=== PATIENT | male | born 1945 | race Caucasian/White ===

== ENCOUNTER 2021-11-13 19:57 | Emergency (ER) | payer MEDICARE ==
[~2021-11-13] VITALS: Ht 175.3 cm; Wt 83.0 kg
[2021-11-13] MEDS ORDERED: XARELTO20 MG PO (20:11)
[2021-11-13] MEDS ORDERED: AZITHROMYCIN500 MG PO (21:29)
== END 2021-11-13 21:52 | disposition left against medical advice (07) ==
LOC: ED 19:57
DX: J44.1 Chronic obstructive pulmonary disease with (acute) exacerbation (principal); Z20.822 Contact with and (suspected) exposure to COVID-19; Z79.899 Other long term (current) drug therapy
CPT/HCPCS: 36415; 71045; 80053; 85025; 87502; 94640; 96374; 99285-25; C9803; J2930; U0003

== ENCOUNTER 2021-11-15 13:11 | Inpatient (IN) | payer OTHER ==
[~2021-11-15] VITALS: Ht 180.3 cm; Wt 83.3 kg
[~2021-11-15 13:11] MED LIST: AZITHROMYCIN500 MG PO; XARELTO20 MG PO
--- OUTSIDE RECORDS SUMMARY | 2021-11-15 13:19 | XMS ---
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 Talha has no Care Guidelines for this patient. Thor VISIT COUNT (12 MO.) 2 [facility] [place] [facility]. TOTAL 2 NOTE: Visits indicate total known visits. ED/C VISIT TRACKING (12 MO.) 11/15/2021 13:[address] [facility] [place] TYPE: Emergency COMPLAINT: - SHOB 11/13/2021 19:57 [facility] [place] TYPE: Emergency COMPLAINT: - SHORTNESS OF BREATH INPATIENT VISIT TRACKING (12 MO.) No inpatient visits to display in this time frame [id number]
[2021-11-15] MEDS ORDERED: METHYLPREDNISOLO4 M1 PO (13:21)
--- NOTE | 2021-11-15 14:05 | EKG ---
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
--- NOTE | 2021-11-15 16:48 | NUR ---
Report received from Delmy COLEMAN, awaiting pt arrival to [place] room 107
--- NOTE | 2021-11-15 17:00 | NUR ---
[facility] and is able to transfer self to bed, becomes SOB with exertion, remains on 5L NC and SPO2 93%. Hx and admission complete, assessment complete. Wheezes throughout lungs noted, coarse in RUL. Pt states current smoker but very interested in quitting. Pt needs pharmacy consult as unsure of medications and why he takes them. Pt has EMS start IV in R hand. SBA, skin intact, A+O. Education provided regarding current admission and illness, pt compliant with cares and has no questions at this time.
--- NOTE | 2021-11-15 17:39 | NUR ---
Scheduled solumedrol administered, Nicotine patch applied to L shoulder. Pt provided with dinner.
--- NOTE | 2021-11-15 18:43 | NUR ---
Vitals checked- BP 158/77, improved from admission BP. Pt provided with PB&J per request to change dinner options. Pt titrated to 4L NC, SPO2 93-95%, eating dinner, remains on 4L. Pt denies needs at this time. Call light in reach, all belongings in reach.
--- NOTE | 2021-11-15 19:15 | NUR ---
REPORT RECEIVED FROM VIRGINIA RON. SBA TO SIDE OF BED FOR VOID. SPO2 TITRATED TO 5L OXYGEN BY NC WITH ACTIVITY. pt SOB, LABORED BREATHING. REQUESTING NEB AVAILABLE.
--- NOTE | 2021-11-15 22:11 | NUR ---
RT IN pt ROOM FOR BREATHING TREATMENT, COMPLETE. ASSESSMENT COMPLETE. SPO2 WNL AT REST WITH 4L OXYGEN BY NC. pt UP TO SIDE OF BED FOR VOID. SOB WITH STANDING. pt TAKES SEVERAL MINUTES TO RECOVER WITH 8L OXYGEN, TITRATED BACK TO 4L OXYGEN WHEN IN BED. CALL LIGHT IN REACH. NO ADDITIONAL REQUESTS.
--- NOTE | 2021-11-16 00:36 | NUR ---
pt RESTING IN BED WITH EYES CLOSED. BREATHING EQUAL AND UNLABORED. RR 18. 4L OXYGEN BY NC IN PLACE.
--- NOTE | 2021-11-16 02:27 | NUR ---
pt AWAKE RESTING IN BED. STATES "I HAVEN'T SLEPT THESE LIGHTS KEEP ME UP IN THE HALLWAY". SPO2 87% WITH 4L OXYGEN BY NC IN PLACE. TITRATED TO 5L OXYGEN BY NC, SPO2 INCREASES TO 90%. LABORED BREATHING NOTED. pt REQUESTING BREATHING TREATMENT. RT NOTIFIED. WHEEZES AUSCULTATED IN LUNG BASES, DIMINISHED BREATH SOUNDS. ICE WATER REFRESHED. TOWEL PROVIDED TO COVER EYES FOR SLEEP. CALL LIGHT IN REACH.
--- NOTE | 2021-11-16 05:27 | NUR ---
CALL LIGHT ANSWERED. SBA TO SIDE OF BED FOR VOID IN URINAL. BACK IN BED. STERILE FLUSH PROVIDED FOR NOSTRILS. OXYMASK IN PLACE PER REQUEST BY pt. SPO2 93% WITH 4L OXYGEN BY OXYMASK IN PLACE. IV MEDICATION ADMINISTERED. IV SL WNL. CALL LIGHT IN REACH. BLINDS SHUT PER REQUEST.
--- NOTE | 2021-11-16 07:13 | NUR ---
Report received from Raeann COLEMAN. Pt resting in bed with eyes closed, even and unlabored respirations on 4L NC O2. No needs identified at this time. Call light in reach, will continue plan of care.
--- NOTE | 2021-11-16 09:03 | NUR ---
Scheduled medications administered, nicotine patch applied to R shoulder. Pt takes PO ABX. CM in room assessing patient.
--- NOTE | 2021-11-16 09:30 | NUR ---
This RN and ADHESIVE BANDAGE MACHINE OPERATOR in room, VSS, I/Os completed. Pt requires 6L to recover after exertion. Titrated back to 5L, 92%. Pt states did not sleep well last night, allowed to rest undisturbed at this time. Assessment complete- lungs coarse, dim, wheezy with exhalation. HRR. Call light in reach.
--- NOTE | 2021-11-16 10:56 | NUR ---
Scheduled med administered. Fresh coffee provided per pt request. Pt stands at bedside to use urinal. on 5L OM.
--- NOTE | 2021-11-16 11:54 | NUR ---
VIRGINIA RON REQUESTED I NOT DISTURB PT AT THIS TIME. WILL CONTINUE TO FOLLOW
--- NOTE | 2021-11-16 12:54 | NUR ---
PATIENT PLANS TO RETURN HOME AT DC WITH HIS S/O ANDREA PADRON [phone]. 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 PATIENT HAS MEDICARE AND VA INSURANCE AND [employer] A SECONDARY INSURANCE. PATIENT WOULD ALSO LIKE TO ESTABLISH WITH A PCP HE CURRENTLY HAS TO DRIVE ALL THE WAY TO [place] FOR APPOINTMENTS. PATIENT GIVEN A LIST OF LOCAL PROVIDERS AND PATIENT CHOSE TO GO WITH [facility] AND HE IS WILLING TO HAVE MD, PA, OR CORRECTION OFFICER SUPERVISOR. CM IS WORKING ON SETTING UP A F/U APPOINTMENT FOR THE PATIENT WHEN HE LEAVES THE HOSPITAL. PATIENT ALSO WANTS PAPERWORK TO APPOINT HIS S/O ANDREA PADRON HIS POA. MAMTA IS WORKING TO HELP HIM GET THIS DONE, BUT INFORMED THE PATIENT THAT THE POA WE COULD HELP HIM WITH WILL NOT BE ACCEPTED BY THE [facility]. PATIENT IS ALREADY IN TOUCH WITH RONNY VALLE FROM 'S SERVICES AND CAN WORK OUT THE POA PAPERWORK FOR THE [facility] WITH HIM.
--- NOTE | 2021-11-16 13:17 | NUR ---
Scheduled solumedrol administered. Pt using OM on 5L at this time. States heard he had "pneumonia or bronchitis", discussed labwork and CXR with patient and educated regarding COPD presentation and sx. Pt states no needs at this time, call light in reach.
[2021-11-16] MEDS ORDERED: PROAIR HFA8.5 GM INH (13:55)
[2021-11-16] MEDS ORDERED: AMIODARONE HCL200 MG PO (13:56)
[2021-11-16] MEDS ORDERED: CETIRIZINE HCL10 MG PO (13:56)
[2021-11-16] MEDS ORDERED: ADVAIR 250-501 EACH INH (13:57)
[2021-11-16] MEDS ORDERED: FLUTICASONE PRO16 GM NAS (13:57)
[2021-11-16] MEDS ORDERED: GUAIFENESIN200 MG PO (13:58)
[2021-11-16] MEDS ORDERED: FLOMAX0.4 MG PO (13:59)
[2021-11-16] MEDS ORDERED: IPRATROPIUM BRO30 ML NAS (13:59)
[2021-11-16] MEDS ORDERED: CRESTOR20 MG PO (13:59)
[2021-11-16] MEDS ORDERED: SPIRIVA RESPIMAT4 GM INH (14:00)
--- NOTE | 2021-11-16 14:29 | NUR ---
Administered additional dose of xarelto per order. Pt stands at bedside to use urinal, becomes SOB with exertion, requires 6L to remain above 90% spo2. Returns to 94% and titrated back to 5L at this time. Pt denies further needs. Call light in reach.
--- NOTE | 2021-11-16 14:43 | NUR ---
CM IN TO TALK WITH PATIENT. AURA THE CHW WILL BE IN AT 8AM TOMORROW IF PATIENT'S S/O ANDREA PADRON CAN BE HERE TO WORK ON NOTARIZING POA PAPERWORK. PATIENT CALLED ANDREA AND SHE WILL BE HERE TOMORROW AT 8AM. PATIENT THANKED THIS RN FOR CM SETTING UP THIS APPOINTMENT. AURA THE CHW CONFIRMED SHE WILL BE HERE AT 8AM TOMORROW. PATIENT DENIED ANY OTHER CM NEEDS AT THIS TIME.
--- NOTE | 2021-11-16 15:44 | NUR ---
MED REC COMPLETE
--- NOTE | 2021-11-16 17:29 | NUR ---
pt denies needs, in bed with call light in reach waiting for meal.
--- NOTE | 2021-11-16 18:15 | NUR ---
PT SWITCHED BACK TO OXYMASK @ 5L
--- NOTE | 2021-11-16 19:10 | NUR ---
BEDSIDE REPORT RECEIVED FROM VIRGINIA VIEIRA. pt AWAKE, SITTING UP IN BED. 5L OXYGEN BY OXYMASK IN PLACE. NO DISTRESS NOTED. NO REQUESTS AT THIS TIME.
--- NOTE | 2021-11-16 20:39 | NUR ---
pt BACK IN BED AFTER LARGE BOWEL MOVEMENT. DENIES SOB. "I FEEL MUCH BETTER". WHEEZES AUSCULTATED RLL. SPO2 96% WITH 5L OXYGEN BY OXYMASK, TITRATED TO 4L OXYGEN BY OXYMASK. VSS. ICE WATER, PERSONAL SUPPLIES, CALL LIGHT IN REACH. NO ADDITIONAL REQUESTS.
--- NOTE | 2021-11-16 21:25 | NUR ---
pt AWAKE READING ON SHAYE. SCHEDULED MEDICATIONS ADMINISTERED. IV SL. NO ADDITIONAL REQUESTS. CALL LIGHT IN REACH.
--- NOTE | 2021-11-16 22:48 | NUR ---
PATIENT CALLED TO HAVE HIS O2 UP TO 5L TO CATCH HIS BREATH. RN NOTIFIED. PATIENT USED THE URINAL. THIS PICTURE FRAMER CAME BACK TO EMPTY. PATIENT IS BACK LYING IN BED. PATIENT'S O2 IS BACK ON 4L PER PATIENT HE CATCHED HIS BREATH ALREADY. NO OTHER NEEDS AT THIS TIME.
--- NOTE | 2021-11-16 23:50 | NUR ---
pt RESTING IN BED WITH LIGHTS OFF IN ROOM. 4L OXYGEN BY OXYMASK IN PLACE. NO DISTRESS NOTED.
--- NOTE | 2021-11-17 00:34 | NUR ---
patient called c/o he is hot and sweating can not sleep and wanting the room temp down from 70 to 67. small bed rail fan provided. no other needs at this time.
--- NOTE | 2021-11-17 02:52 | NUR ---
pt RESTING IN BED WITH EYES CLOSED. 4L OXYGEN BY OXYMASK ON. NO DISTRESS NOTED.
--- NOTE | 2021-11-17 05:30 | NUR ---
CHECKED ON pt. pt RESTING IN BED WITH EYES CLOSED. 4L OXYGEN BY OXYMASK ON. LYING ON RIGHT SIDE. NO DISTRESS NOTED.
--- NOTE | 2021-11-17 06:34 | NUR ---
pt SLEEPING, AWAKENS TO VOICE. VSS. 4L OXYGEN BY OXYMASK ON, SPO2 98-99% AT REST. ASSESSMENT COMPLETE. LUNG SOUNDS DIMINISHED, COARSENESS AUSCULTATED UPPER LOBES. IV MEDICATION ADMINISTERED WNL, IV SL. pt DENIES TOILETING NEEDS. WARM BLANKET PROVIDED. CALL LIGHT IN REACH.
--- NOTE | 2021-11-17 07:30 | NUR ---
report from Raeann COLEMAN, call light in reach - oxygen on. void 500 ml dark urine in urinal.
--- NOTE | 2021-11-17 07:35 | NUR ---
Assisted pt to file out POA form as he is unable to see and write small enough to put his and Radha's name on the form. Completed top section per his instruction. Radha and susana will be here at 0800 to finish POA form.
--- NOTE | 2021-11-17 07:45 | NUR ---
[facility], as pt would like a pcp in [facility]. It is becoming difficult for pt to travel to the [facility] for appts. [facility] 20% service connected. Pt scheduled with Jayde Rossi NP for appt to establish care 11/26/21 at 10:00.
--- NOTE | 2021-11-17 09:08 | NUR ---
Recieved a return call from Luis Angel Hong, multisensor intelligence officer in [place]. He has filed claims for this for agent organge exposure. Updated POA has been completed with a notary at 8 am. He states [place] does not recognize outside forms and I stated I am aware of this and I had left him a message asking he help this to obtain the form and complete as this pt is sob and needs assist.
--- NOTE | 2021-11-17 09:30 | NUR ---
Notified in 929 meeting pt will dc today. 02 qualifier has been completed. Insurance is not correct on demographics. Called and left a message for Lidya in [place] asking they update demo sheet so I can send 02 orders to [place] to have the [place] pay.
[2021-11-17] MEDS ORDERED: NICOTINE1 EAC2 TD (10:15)
[2021-11-17] MEDS ORDERED: PREDNISONE20 MG PO (10:16)
--- NOTE | 2021-11-17 12:00 | NUR ---
Faxed orders, 02 qualifier, RX, H&P, DC summary, and updated face sheet to [place]. Called and spoke with Lissett. Updated pt would like to dc today and will hold pt until we hear there is auth and they are on their way to deliver the 02.
--- NOTE | 2021-11-17 12:18 | NUR ---
Called Tracey and asked if she can update demo sheet. She states she was just listening to my message now and will update.
--- NOTE | 2021-11-17 12:22 | NUR ---
pt ate 100 % lunch well. denies needs - waiting for o2 delivery for dc to home.
--- NOTE | 2021-11-17 13:24 | NUR ---
Received message from srikanth Ogden approved from the [place] and their personal driver will leave Jignesh Egan in 40 minutes. Updated pts nurse and pt. Delivered med 02 tank from [place] to room to RN.
== END 2021-11-17 13:46 | disposition home or self-care (01) | DRG 189 ==
LOC: ED 13:11 → MS 15:52
PROVIDERS: ADMIT Internal Medicine; ATTEND Internal Medicine
DX: J96.01 Acute respiratory failure with hypoxia (principal); J44.1 Chronic obstructive pulmonary disease with (acute) exacerbation; I48.20 Chronic atrial fibrillation, unspecified; Z20.822 Contact with and (suspected) exposure to COVID-19; E78.5 Hyperlipidemia, unspecified; N40.0 Benign prostatic hyperplasia without lower urinary tract symptoms; J30.9 Allergic rhinitis, unspecified; J34.2 Deviated nasal septum; F17.210 Nicotine dependence, cigarettes, uncomplicated; Z71.6 Tobacco abuse counseling; Z98.890 Other specified postprocedural states; Z79.2 Long term (current) use of antibiotics; Z79.01 Long term (current) use of anticoagulants; Z79.52 Long term (current) use of systemic steroids
CPT/HCPCS: 36415; 36600; 71045; 80053; 82803; 83605; 83735; 84484; 85025; 87502; 93005; 93010; 94640; 94760; 94761; 96365; 96375; 99285-25; A9270; C9803; J0456; J0696; J1100; J2920; U0003

== ENCOUNTER 2022-09-03 17:20 | Emergency (ER) | payer MEDICARE ==
[~2022-09-03] VITALS: Ht 180.3 cm; Wt 70.7 kg
[~2022-09-03 17:20] MED LIST changes: +ADVAIR 250-501 EACH INH; +AMIODARONE HCL200 MG PO; +BREZTRI AEROS10.7 GM INH; +CETIRIZINE HCL10 MG PO; +CRESTOR20 MG PO; +FLOMAX0.4 MG PO; +FLUTICASONE PRO16 GM NAS; +GUAIFENESIN200 MG PO; +IPRATROPIUM BRO30 ML NAS; +METHYLPREDNISOLO4 M1 PO; +NICOTINE1 EAC2 TD; +PREDNISONE20 MG PO; +PROAIR HFA8.5 GM INH; +SPIRIVA RESPIMAT4 GM INH
[2022-09-03] MEDS ORDERED: PREDNISONE50 MG PO (17:30)
[2022-09-03] MEDS ORDERED: PREDNISONE20 MG PO (17:30)
[2022-09-03] MEDS ORDERED: FUROSEMIDE40 MG PO (17:30)
[2022-09-03] MEDS ORDERED: SULFAMETHOXAZO1 EACH PO (17:31)
[2022-09-03 19:31] VITALS: BP 108/44
== END 2022-09-03 19:31 | disposition home or self-care (01) ==
LOC: ED 17:20
DX: S51.812A Laceration without foreign body of left forearm, initial encounter (principal); W18.30XA Fall on same level, unspecified, initial encounter; J44.9 Chronic obstructive pulmonary disease, unspecified; Z79.899 Other long term (current) drug therapy; Z79.52 Long term (current) use of systemic steroids
CPT/HCPCS: 99283

== ENCOUNTER 2022-09-17 17:21 | Emergency (ER) | payer MEDICARE ==
[~2022-09-17] VITALS: Ht 180.3 cm; Wt 70.7 kg
[~2022-09-17 17:21] MED LIST changes: +FUROSEMIDE40 MG PO; +PREDNISONE50 MG PO; +SULFAMETHOXAZO1 EACH PO
--- OUTSIDE RECORDS SUMMARY | 2022-09-17 17:31 | XMS ---
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 - Patient with suicidal and/or homicidal ideations eloped. - Patient eloped with IV in place. Details: PATIENT LEFT AMA CRITERIA MET - [facility] - 2 Visits in 30 Days CARE PROVIDERS There are no care providers on record at this time. Talha has no Care Guidelines for this patient. E.Scott. VISIT COUNT (12 MO.) 5 [facility] H. TOTAL 5 NOTE: Visits indicate total known visits. ED/C VISIT TRACKING (12 MO.) 09/17/2022 17:22 [facility] [place] TYPE: Emergency COMPLAINT: - CHEST FEELS HEAVY , HARD TO BREATHE 09/03/2022 17:20 [facility] [place] TYPE: Emergency COMPLAINT: - LACERATION DIAGNOSES: - Chronic obstructive pulmonary disease, unspecified - Fall on same level, unspecified, initial encounter - Laceration without foreign body of left forearm, initial encounter - [facility] (current) use of systemic steroids - Other superintendent container terminal (current) drug therapy 05/09/2022 10:26 [facility] [place] TYPE: Emergency COMPLAINT: - CONGESTION, COUGH 11/15/2021 13:11 [facility] [place] TYPE: Emergency COMPLAINT: - SHOB 11/13/2021 19:57 [facility] [place] TYPE: Emergency COMPLAINT: - SHORTNESS OF BREATH DIAGNOSES: - Chronic obstructive pulmonary disease with (acute) exacerbation - Contact with and (suspected) exposure to COVID-19 - Other detention (current) drug therapy - Shortness of breath INPATIENT VISIT TRACKING (12 MO.) 05/12/2022 15:09 [facility] [place] TYPE: General Medicine DIAGNOSES: - Acute and chronic respiratory failure with hypercapnia - Pneumonia due to Pseudomonas - Acute COPD exacerbation, PNA 05/09/2022 13:20 [facility] [place] TYPE: Critical Care COMPLAINT: - PNEUMOTHORAX DIAGNOSES: - Acquired absence of other specified parts of digestive tract - Acquired absence of other specified parts of digestive tract - Acute and chronic respiratory failure with hypoxia - Acute and chronic respiratory failure with hypoxia - Atelectasis - Atelectasis - Contact with and (suspected) exposure to COVID-19 - Contact with and (suspected) exposure to COVID-19 - Emphysema, unspecified - Emphysema, unspecified - Essential (primary) hypertension - Essential (primary) hypertension - Other foreign object in bronchus causing asphyxiation, initial encounter - Other foreign object in bronchus causing asphyxiation, initial encounter - Other superintendent container terminal (current) drug therapy - Other detention (current) drug therapy - Other pneumothorax - Other specified postprocedural states - Other specified postprocedural states - Pneumonia, unspecified organism - Pneumonia, unspecified organism 11/15/2021 15:[address] [facility] [place] TYPE: Medical Surgical COMPLAINT: - ACUTE EXACERBATION OF CHRONIC OBSTRUCTIVE PULMONAR DIAGNOSES: - Acute respiratory failure with hypoxia - Acute respiratory failure with hypoxia - Allergic rhinitis, unspecified - Allergic rhinitis, unspecified - Benign prostatic hyperplasia without lower urinary tract symptoms - Benign prostatic hyperplasia without lower urinary tract symptoms - Chronic atrial fibrillation, unspecified - Chronic atrial fibrillation, unspecified - Chronic obstructive pulmonary disease with (acute) exacerbation - Contact with and (suspected) exposure to COVID-19 - Contact with and (suspected) exposure to COVID-19 - Deviated nasal septum - Deviated nasal septum - Hyperlipidemia, unspecified - Hyperlipidemia, unspecified - [facility] (current) use of antibiotics - local company intermodal truck driver (current) use of antibiotics - local company intermodal truck driver (current) use of anticoagulants - [facility] (current) use of anticoagulants - local company intermodal truck driver (current) use of systemic steroids - [facility] (current) use of systemic steroids - Nicotine dependence, cigarettes, uncomplicated - Nicotine dependence, cigarettes, uncomplicated - Other specified postprocedural states - Other specified postprocedural states - Tobacco abuse counseling - Tobacco abuse counseling [email or web address]
[2022-09-17 20:43] VITALS: BP 118/56
--- NOTE | 2022-09-18 16:43 | EKG ---
[facility] [address] [place] [address] Signed Normal sinus rhythm Right bundle branch block Abnormal ECG When compared with ECG of 11-MAY-2022 16:57, T wave inversion no longer evident in Anterior leads Confirmed by ANNA MCGHEE MD ([id number]) on 09/18/2022 4:43:16 PM Electronically Signed By: ANNA MCGHEE MD 09/18/22 1643 PATIENT NAME: SUSI SMITH Electrocardiogram DATE OF : 47 PHYSICIAN: ANNA MCGHEE MD REPORT #: [id number] REPORT IS CONFIDENTIAL AND NOT TO BE RELEASED WITHOUT AUTHORIZATION
== END 2022-09-17 20:35 | disposition short-term general hospital (02) ==
LOC: ED 17:21
DX: R07.89 Other chest pain (principal); I21.4 Non-ST elevation (NSTEMI) myocardial infarction; J44.9 Chronic obstructive pulmonary disease, unspecified; Z79.52 Long term (current) use of systemic steroids; Z79.02 Long term (current) use of antithrombotics/antiplatelets; Z79.899 Other long term (current) drug therapy
CPT/HCPCS: 36415; 71045; 80053; 83880; 84484; 85025; 93005; 93010; C9803; J1644; U0003